=== PATIENT | male | born 1970 | race Caucasian/White ===

== ENCOUNTER 2019-04-30 13:55 | Emergency (ER) | payer BC ==
[~2019-04-30] VITALS: Ht 175.3 cm; Wt 99.8 kg
[2019-04-30] MEDS ORDERED: HYDROcodone/APAP 5/325MG 1 TAB TABLET PO ONE (14:30)
--- NOTE | 2019-04-30 14:30 | PHYS DOC ---
Past History Past Medical History: Hypertension Past Surgical History: No Surgical History Alcohol Use: None Adult General Chief Complaint Chief Complaint: BACK PAIN OR INJURY HPI HPI Patient is a 48-year-old male with no past medical history presents secondary to left flank pain that started this morning and has gradually gotten worse and currently rated 8/10. Pain is not worse with movement. No medications taken prior to arrival. No hematuria or dysuria, nausea vomiting, diarrhea or constipation, recent sickness. Review of Systems Review of Systems All other ROS is negative unless otherwise stated in HPI Current Medications Current Medications Current Medications Medications (Trade) Dose Ordered Sig/Bj Start Time Stop Time Status Last Admin Dose Admin Acetaminophen/ Hydrocodone Bitart (Lortab 5/325) 1 tab 1X ONCE 04/30/19 14:30 04/30/19 14:31 Allergies Allergies Allergies Coded Allergies Type Severity Reaction Last Updated Verified No Known Drug Allergies 04/30/19 No Physical Exam Physical Exam See above Constitutional: Well developed, well nourished, uncomfortable, non-toxic appearance. [] HENT: Normocephalic, atraumatic, bilateral external ears normal, oropharynx moist, no oral exudates, nose normal. [] Eyes: PERRLA, EOMI, conjunctiva normal, no discharge. [] Neck: Normal range of motion, no tenderness, supple, no stridor. [] Cardiovascular:Heart rate regular rhythm, no murmur [] Lungs & Thorax: Bilateral breath sounds clear to auscultation [] Abdomen: Bowel sounds normal, soft, no tenderness, no masses, no pulsatile masses. [] Skin: Warm, dry, no erythema, no rash. [] Back: No tenderness, no CVA tenderness. [] Extremities: No tenderness, no cyanosis, no clubbing, ROM intact, no edema. [] Neurologic: Alert and oriented X 3, normal motor function, normal sensory function, no focal deficits noted. [] Psychologic: Affect normal, judgement normal, mood normal. [] Current Patient Data Vital Signs Vital Signs Date Time Temp Pulse Resp B/P (MAP) Pulse Ox O2 Delivery O2 Flow Rate FiO2 04/30/19 13:55 98.1 93 22 154/114 (127) 95 Room Air Lab Results Laboratory Tests Test 04/30/19 14:50 White Blood Count 11.6 x10^3/uL Red Blood Count 5.52 x10^6/uL Hemoglobin 16.7 g/dL Hematocrit 50.6 % Mean Corpuscular Volume 92 fL Mean Corpuscular Hemoglobin 30 pg Mean Corpuscular Hemoglobin Concent 33 g/dL Red Cell Distribution Width 13.0 % Platelet Count 242 x10^3/uL Neutrophils (%) (Auto) 81 % Lymphocytes (%) (Auto) 14 % Monocytes (%) (Auto) 4 % Eosinophils (%) (Auto) 2 % Basophils (%) (Auto) 1 % Neutrophils # (Auto) 9.4 x10^3uL Lymphocytes # (Auto) 1.6 x10^3/uL Monocytes # (Auto) 0.4 x10^3/uL Eosinophils # (Auto) 0.2 x10^3/uL Basophils # (Auto) 0.1 x10^3/uL Urine Collection Type Unknown Urine Color Yellow Urine Clarity Clear Urine pH 5.0 Urine Specific [place] >=1.030 Urine Protein 30 mg/dl Urine Glucose (UA) Neg mg/dL Urine Ketones (Stick) Neg mg/dL Urine Blood Neg Urine Nitrite Neg Urine Bilirubin Neg Urine Urobilinogen Dipstick 0.2 mg/dL Urine Leukocyte Esterase Neg Urine RBC Occ /HPF Urine WBC Occ /HPF Urine Squamous Epithelial Cells Occ /LPF Urine Bacteria 0 /HPF Urine Hyaline Casts Occ /HPF Urine Granular Casts Occ /HPF Urine Mucus Mod /LPF Sodium Level 144 mmol/L Potassium Level 4.5 mmol/L Chloride Level 105 mmol/L Carbon Dioxide Level 29 mmol/L Anion Gap 10 Blood Urea Nitrogen 17 mg/dL Creatinine 1.0 mg/dL Estimated GFR (Cockcroft-Gault) 79.4 BUN/Creatinine Ratio 17 Glucose Level 131 mg/dL Calcium Level 8.8 mg/dL Total Bilirubin 0.6 mg/dL Aspartate Amino Transf (AST/SGOT) 99 U/L Alanine Aminotransferase (ALT/SGPT) 234 U/L Alkaline Phosphatase 75 U/L Total Protein 7.8 g/dL Albumin 4.1 g/dL Albumin/Globulin Ratio 1.1 Current Medications Medications (Trade) Dose Ordered Sig/Bj Route PRN Reason Start Time Stop Time Status Last Admin Dose Admin Acetaminophen/ Hydrocodone Bitart (Lortab 5/325) 1 tab 1X ONCE PO 04/30/19 14:30 04/30/19 14:31 DC 04/30/19 14:30 Sodium Chloride 1,000 ml @ 1,000 mls/hr 1X ONCE IV 04/30/19 15:00 04/30/19 15:59 04/30/19 15:00 Ketorolac Tromethamine (Toradol 30mg Vial) 30 mg 1X ONCE IVP 04/30/19 15:00 04/30/19 15:10 DC 04/30/19 15:00 EKG EKG [] Radiology/Procedures Radiology/Procedures EXAM: CT Abdomen and Pelvis without IV contrast INDICATION: Left flank pain and hematuria. TECHNIQUE: Multi-detector row CT images were acquired from the lung bases through the abdomen and pelvis without the use of IV contrast. Sagittal and coronal images were acquired from the transaxial data. All CT scans performed at this facility utilize dose optimization techniques as appropriate to the exam, including the following: Automated exposure control and adjustment of the mA and/or KV according to patient size (this includes techniques or standardized protocols for targeted exams where dose is indication/reason for exam). ORAL CONTRAST: None COMPARISON: None FINDINGS: The absence of IV contrast limits evaluation of soft tissue pathology. LOWER CHEST: Unremarkable LIVER: Unremarkable BILIARY SYSTEM: Gallbladder contains at least one layering calcified stone. No gallbladder wall thickening or pericholecystic soft tissue stranding.. Bile ducts are not dilated. PANCREAS: Unremarkable SPLEEN: Unremarkable ADRENALS: Unremarkable KIDNEYS & URETERS: 3 mm distal left ureteral stone (axial image 143 of 173 on series 2) is associated with upstream mild left hydronephrosis and perinephric soft tissue stranding. No fluid collection. The right kidney is unremarkable. BLADDER: Unremarkable REPRODUCTIVE ORGANS: Unremarkable GASTROINTESTINAL: The stomach, small bowel, and colon are unremarkable. The appendix is normal. MESENTERY/PERITONEUM/RETROPERITONEUM: Unremarkable VASCULAR: Unremarkable LYMPH NODES: No adenopathy OSSEOUS & SOFT TISSUES: Unremarkable IMPRESSION: Mild obstructive uropathy from a distal left ureteral 3 mm stone. Electronically signed by: Jane Rogers MD (04/30/2019 3:25 PM) [facility][] Course & Med Decision Making Course & Med Decision Making Pertinent Labs and Imaging studies reviewed. (See chart for details) Patient seen for left flank pain. His examination is unremarkable although he does appear uncomfortable. We'll start with urinalysis and basic labs Raymond for pain. Differential diagnosis includes UTI, pyelonephritis, ureteral stone, left flank muscular skeletal pain. Patient has a 3 mm left ureteral stone. He has mild leukocytosis and occasional white blood cells in his urine. We'll start him on antibiotics to prevent any secondary infection. He will be given Flomax prescription to help facilitate stone passage and also hydrocodone and ibuprofen. Patient is instructed to follow-up with his primary care physician in one week if his symptoms have not improved. He also has elevation of his liver enzymes of unknown significance and has been informed of this result and instructed to follow-up with his primary care physician. Dragon Disclaimer Dragon Disclaimer This electronic medical record was generated, in whole or in part, using a voice recognition dictation system. Departure Departure: Impression: Primary Impression: Left flank pain Additional Impressions: Left ureteral stone Elevated liver enzymes Disposition: 01 HOME, SELF-CARE Condition: STABLE Referrals: ZAC GARCIA MD (PCP) Follow up in 5-7 days if symptoms not improving. Patient Instructions: Kidney Stones Additional Instructions: Push fluids. Return for fever >101 or worsening symptoms. Scripts Sulfamethoxazole/Trimethoprim (BACTRIM DS TABLET) 1 Each Tablet 1 TAB PO BID for Ureteral Stone for 10 Days, #20 TAB 0 Refills Prov: ELIZABETH MACIEL DO 04/30/19 Tamsulosin Hcl (FLOMAX) 0.4 Mg Cap.er.24h 1 CAP PO DAILY for Ureteral stone, #14 CAP 11 Refills Prov: ELIZABETH MACIEL DO 04/30/19 Ibuprofen (IBUPROFEN) 800 Mg Tablet 1 TAB PO TID for Pain, #30 TAB Prov: ELIZABETH MACIEL DO 04/30/19 Hydrocodone Bit/Acetaminophen (HYDROCODONE-APAP 5-325 ) 1 Each Tablet 1 TAB PO PRN Q6HRS PRN for PAIN for 5 Days, #20 TAB 0 Refills Caution: this medication can make you drowsy. Do not drive or operate heavy machinery when using this medication. Prov: ELIZABETH MACIEL DO 04/30/19 Problem Qualifiers ELIZABETH MACIEL DO Apr 30, 2019 14:30
[2019-04-30] MEDS ORDERED: IV NORMAL SALINE 1,000ML 1,000 ML IV ONE (15:00)
[2019-04-30] MEDS ORDERED: KETOROLAC 30 MG/ML VIAL. IVP ONE (15:00)
[2019-04-30 15:09] LABS: BASO # 0.1 x10^3/uL (0.0-0.2); BASO % 1 % (0-3); EOS # 0.2 x10^3/uL (0.0-0.7); EOS % 2 % (0-3); HEMATOCRIT 50.6 % (39.0-53.0); HEMOGLOBIN 16.7 g/dL (13.0-17.5); LYMPH # 1.6 x10^3/uL (1.0-4.8); LYMPH % 14 % (24-48); MEAN CORPUSCULAR HEMOGLOBIN 30 pg (25-35); MEAN CORPUSCULAR HGB CONC 33 g/dL (31-37); MEAN CORPUSCULAR VOLUME 92 fL (79-100); MONO # 0.4 x10^3/uL (0.0-1.1); MONO % 4 % (0-9); NEUT # 9.4 x10^3uL (1.8-7.7); NEUT % 81 % (31-73); PLATELET COUNT 242 x10^3/uL (140-400); RED BLOOD COUNT 5.52 x10^6/uL (4.30-5.70); WHITE BLOOD COUNT 11.6 x10^3/uL (4.0-11.0)
[2019-04-30 15:17] LABS: CLARITY,URINE CLEAR; COLOR,URINE YELLOW; GLUCOSE,URINE NEG (NEG)
[2019-04-30 15:18] LABS: BACTERIA,URINE 0 /HPF (0-FEW); BILIRUBIN,URINE NEG (NEG); NITRITE,URINE NEG (NEG); RBC,URINE OCC /HPF (0-2); SQUAMOUS EPITHELIAL CELL,UR OCC /LPF; UROBILINOGEN,URINE 0.2 mg/dL (0.2 mg/dL); WBC,URINE OCC /HPF (0-4)
[2019-04-30 15:19] LABS: GRANULAR CASTS,URINE OCC /HPF; HYALINE CASTS, URINE OCC /HPF
[2019-04-30 15:26] LABS: CALCIUM 8.8 mg/dL (8.5-10.1); GFR 79.4; POTASSIUM 4.5 mmol/L (3.5-5.1)
--- NOTE | 2019-04-30 15:28 | RAD ---
EXAM: CT Abdomen and Pelvis without IV contrast INDICATION: Left flank pain and hematuria. TECHNIQUE: Multi-detector row CT images were acquired from the lung bases through the abdomen and pelvis without the use of IV contrast. Sagittal and coronal images were acquired from the transaxial data. All CT scans performed at this facility utilize dose optimization techniques as appropriate to the exam, including the following: Automated exposure control and adjustment of the mA and/or KV according to patient size (this includes techniques or standardized protocols for targeted exams where dose is indication/reason for exam). ORAL CONTRAST: None COMPARISON: None FINDINGS: The absence of IV contrast limits evaluation of soft tissue pathology. LOWER CHEST: Unremarkable LIVER: Unremarkable BILIARY SYSTEM: Gallbladder contains at least one layering calcified stone. No gallbladder wall thickening or pericholecystic soft tissue stranding.. Bile ducts are not dilated. PANCREAS: Unremarkable SPLEEN: Unremarkable ADRENALS: Unremarkable KIDNEYS & URETERS: 3 mm distal left ureteral stone (axial image 143 of 173 on series 2) is associated with upstream mild left hydronephrosis and perinephric soft tissue stranding. No fluid collection. The right kidney is unremarkable. BLADDER: Unremarkable REPRODUCTIVE ORGANS: Unremarkable GASTROINTESTINAL: The stomach, small bowel, and colon are unremarkable. The appendix is normal. MESENTERY/PERITONEUM/RETROPERITONEUM: Unremarkable VASCULAR: Unremarkable LYMPH NODES: No adenopathy OSSEOUS & SOFT TISSUES: Unremarkable IMPRESSION: Mild obstructive uropathy from a distal left ureteral 3 mm stone. Electronically signed by: Jane Rogers MD (04/30/2019 3:25 PM) [facility]
[2019-04-30 15:29] LABS: ALBUMIN 4.1 g/dL (3.4-5.0); ALBUMIN/GLOBULIN RATIO 1.1 (1.0-1.7); TOTAL BILIRUBIN 0.6 mg/dL (0.2-1.0); TOTAL PROTEIN 7.8 g/dL (6.4-8.2)
[2019-04-30 15:30] VITALS: BP 146/86
[2019-04-30] MEDS ORDERED: SULF1TAB24 PO (15:45)
[2019-04-30] MEDS ORDERED: IBUP800T19 PO (15:45)
[2019-04-30] MEDS ORDERED: TAMS0.4C97 PO (15:45)
[2019-04-30] MEDS ORDERED: HYDR-2155 PO (15:45)
[2019-04-30] MEDS ORDERED: HYDROmorphone PF 1 MG/ML DISP.SYRIN IV ONE (16:00)
[2019-04-30] MEDS ORDERED: TAMSULOSIN 0.4 MG CAP.ER.24H. PO ONE (16:00)
== END 2019-04-30 16:00 | disposition home or self-care (01) ==
LOC: ER 13:55
DX: N20.1 Calculus of ureter (principal); R74.8 Abnormal levels of other serum enzymes; I10 Essential (primary) hypertension
CPT/HCPCS: 36415; 74176; 80053; 81001; 85025; 96374; 96375; 99284; J1170; J1885; J7030

== ENCOUNTER 2020-02-06 11:54 | Inpatient (IN) | payer BC ==
[~2020-02-06] VITALS: Ht 175.3 cm; Wt 99.8 kg
[~2020-02-06 11:54] MED LIST: HYDR-2155 PO; IBUP800T19 PO; SULF1TAB24 PO; TAMS0.4C97 PO
--- NOTE | 2020-02-06 11:57 | PHYS DOC ---
Past History Past Medical History: Hypertension Past Surgical History: No Surgical History Alcohol Use: None General Adult EDM: Chief Complaint: SOA, COVID HPI: HPI: Patient is a 49-year-old male who was diagnosed with Covid last Thursday presents with chief complaint of shortness of breath and cough. Patient has been sick for approximately 1 week. Patient has had a fever, myalgias, headache, cough and shortness of breath especially with exertion. Patient's had nausea vomiting x1 and several episodes of diarrhea. Patient denies abdominal pain. Review of Systems: Review of Systems: Constitutional: Complains of fever Eyes: Denies change in visual acuity HENT: Complains of congestion and loss of smell Respiratory: Complains of cough and shortness of breath Cardiovascular: Denies chest pain or edema GI: Denies abdominal pain, patient has had some nausea and vomiting x1 and diarrhea : Denies dysuria Musculoskeletal: Complains of myalgias Integument: Denies rash Neurologic: Complains of headache but no focal weakness or sensory changes Endocrine: Denies polyuria or polydipsia Lymphatic: Denies swollen glands Psychiatric: Denies depression or anxiety Allergies: Allergies: Allergies Coded Allergies Type Severity Reaction Last Updated Verified No Known Drug Allergies 04/30/19 No Physical Exam: PE: Constitutional: Well developed, well nourished, no acute distress, non-toxic appearance. [] HENT: Normocephalic, atraumatic, bilateral external ears normal, no trismus nose normal. [] Eyes: PERRLA, EOMI, conjunctiva normal, no discharge. [] Neck: Normal range of motion, no tenderness, no meningeal signs Cardiovascular: Tachycardia, peripheral pulses are intact, cap refill is less than 2 seconds Lungs & Thorax: Slightly diminished breath sounds bilaterally Abdomen: , soft, no tenderness, no masses, no pulsatile masses. [] Skin: Warm, dry, no erythema, no rash. [] Back: No tenderness, no CVA tenderness. [] Extremities: No tenderness, no cyanosis, no clubbing, ROM intact, no edema. [] Neurologic: Alert and oriented X 3, normal motor function, normal sensory function, no focal deficits noted. [] Psychologic: Affect normal, judgement normal, mood normal. [] Current Patient Data: Labs: Laboratory Tests Test 02/06/20 12:35 02/06/20 13:29 02/06/20 13:40 White Blood Count 3.8 x10^3/uL Red Blood Count 5.09 x10^6/uL Hemoglobin 15.4 g/dL Hematocrit 45.4 % Mean Corpuscular Volume 89 fL Mean Corpuscular Hemoglobin 30 pg Mean Corpuscular Hemoglobin Concent 34 g/dL Red Cell Distribution Width 13.1 % Platelet Count 243 x10^3/uL Neutrophils (%) (Auto) 56 % Lymphocytes (%) (Auto) 34 % Monocytes (%) (Auto) 9 % Eosinophils (%) (Auto) 0 % Basophils (%) (Auto) 2 % Neutrophils # (Auto) 2.1 x10^3uL Lymphocytes # (Auto) 1.3 x10^3/uL Monocytes # (Auto) 0.3 x10^3/uL Eosinophils # (Auto) 0.0 x10^3/uL Basophils # (Auto) 0.1 x10^3/uL Sodium Level 136 mmol/L Potassium Level 3.5 mmol/L Chloride Level 102 mmol/L Carbon Dioxide Level 25 mmol/L Anion Gap 9 Blood Urea Nitrogen 15 mg/dL Creatinine 0.9 mg/dL Estimated GFR (Cockcroft-Gault) 89.3 BUN/Creatinine Ratio 17 Glucose Level 98 mg/dL Lactic Acid Level 0.7 mmol/L Calcium Level 8.7 mg/dL Total Bilirubin 0.3 mg/dL Aspartate Amino Transf (AST/SGOT) 49 U/L Alanine Aminotransferase (ALT/SGPT) 79 U/L Alkaline Phosphatase 65 U/L Lactate Dehydrogenase 321 U/L Creatine Kinase 215 U/L Troponin I Quantitative < 0.017 ng/mL C-Reactive Protein 50.1 mg/L Total Protein 7.4 g/dL Albumin 3.3 g/dL Albumin/Globulin Ratio 0.8 Lipase 202 U/L Urine Collection Type Unknown Urine Color Francesca Urine Clarity Clear Urine pH 6.0 Urine Specific [place] 1.025 Urine Protein 100 mg/dl Urine Glucose (UA) Neg mg/dL Urine Ketones (Stick) Trace mg/dL Urine Blood Neg Urine Nitrite Neg Urine Bilirubin Neg Urine Urobilinogen Dipstick 0.2 mg/dL Urine Leukocyte Esterase Neg Urine RBC 0 /HPF Urine WBC 0 /HPF Urine Squamous Epithelial Cells Occ /LPF Urine Bacteria 0 /HPF D-Dimer (Kerry) 0.66 mg/L Current Medications Medications (Trade) Dose Ordered Sig/Bj Route PRN Reason Start Time Stop Time Status Last Admin Dose Admin Sodium Chloride (Normal Saline Flush) 10 ml QSHIFT PRN IV AFTER MEDS AND BLOOD DRAWS 02/06/20 12:30 Sodium Chloride 1,000 ml @ 1,000 mls/hr 1X ONCE IV 02/06/20 12:30 02/06/20 13:29 DC 02/06/20 12:44 Dexamethasone Sodium Phosphate (Decadron) 4 mg 1X ONCE IVP 02/06/20 13:15 02/06/20 13:16 DC 02/06/20 13:32 Ceftriaxone Sodium 1 gm/ Sodium Chloride 50 ml @ 100 mls/hr 1X ONCE IV 02/06/20 13:15 02/06/20 13:44 DC 02/06/20 13:30 Azithromycin 500 mg/Sodium Chloride 250 ml @ 250 mls/hr 1X ONCE IV 02/06/20 13:15 02/06/20 14:14 DC 02/06/20 13:45 Sodium Chloride 50 ml @ As Directed STK-MED ONCE .ROUTE 02/06/20 13:14 02/06/20 13:14 DC Ceftriaxone Sodium (Rocephin) 1 gm STK-MED ONCE .ROUTE 02/06/20 13:14 02/06/20 13:14 DC Sodium Chloride 250 ml @ As Directed STK-MED ONCE .ROUTE 02/06/20 13:14 02/06/20 13:15 DC Azithromycin (Zithromax) 500 mg STK-MED ONCE IV 02/06/20 13:14 02/06/20 13:15 DC Vital Signs: Vital Signs Date Time Temp Pulse Resp B/P (MAP) Pulse Ox O2 Delivery O2 Flow Rate FiO2 02/06/20 15:39 91 24 143/92 (109) 97 Nasal Cannula 2.0 02/06/20 12:00 99.2 EKG: EKG: [] EKG interpreted by me sinus tach with a rate of 101 left axis deviation, left anterior hemiblock, nonspecific ST changes Radiology/Procedures: Radiology/Procedures: [][address] [address] IMAGING REPORT Signed PATIENT: MARGIE LOVELL ACCOUNT: [id number] : 1970 LOCATION: 1 [facility] AGE: 49 SEX: M EXAM STATUS: ADM IN ORD. PHYSICIAN: ROBERTO LINDO MD REASON: COUGH, PNA, COVID, +D DIMER PROCEDURE: CT ANGIOGRAPHY CHEST Examination: CT ANGIOGRAPHY CHEST History: Reason: COUGH, PNA, COVID, +D DIMER / Spl. Instructions: / History: Comparison/Correlation: Portable chest x-ray performed earlier on the same day Findings: Axial images of the chest were obtained following IV contrast into pulmonary arteriography protocol. Maximum intensity projection images provided. Sagittal and coronal reformatted images provided. Pulmonary arterial vasculature is normal with no PE identified. Extensive consolidations involving the lower lobes bilaterally seen. Patchy nodular infiltrates involving the upper to mid lung regions are also present. No enlarged thoracic lymph nodes. Visualized aorta is unremarkable. There is no pleural or pericardial effusion. Fatty infiltration of the liver is present. Small calculus is present within the gallbladder. Bony structures are unremarkable. Impression: No PE. Patchy infiltrates with consolidation at the lower lobes especially seen. Follow-up to resolution recommended. PQRS Compliance Statement: One or more of the following individualized dose reduction techniques were utilized for this examination: 1. Automated exposure control 2. Adjustment of the mA and/or kV according to patient size 3. Use of iterative reconstruction technique Electronically signed by: Wilbert Nguyễn MD (02/06/2020 3:53 PM) [facility] [place] DICTATED AND SIGNED BY: WILBERT NGUYỄN MD DATE: 02/06/20 1553 CC: ROBERTO LINDO MD; ZAC GARCIA MD; ZAC ODONNELL MD ~ Heart Score: Risk Factors: Risk Factors: DM, Current or recent (<one month) smoker, HTN, HLP, family history of CAD, obesity. Risk Scores: Score 0 - 3: 2.5% MACE over next 6 weeks - Discharge Home Score 4 - 6: 20.3% MACE over next 6 weeks - Admit for Clinical Observation Score 7 - 10: 72.7% MACE over next 6 weeks - Early Invasive Strategies Course & Med Decision Making: Course & Med Decision Making Pertinent Labs and Imaging studies reviewed. (See chart for details) [] 49-year-old male with COVID-19 presents with worsening shortness of breath. Patient satting 92 to 93 % on room air on arrival. Patient has a right midlung infiltrate on x-ray. Patient has elevated D-dimer therefore he underwent a CT angiogram which shows significant pneumonia. Patient has an oxygen requirement need be admitted. Dr. Odonnell will admit. Patient will get Decadron and a ntibiotics. Patient clinically improved on submental oxygen. Dragon Disclaimer: Dragon Disclaimer: This electronic medical record was generated, in whole or in part, using a voice recognition dictation system. Departure Departure: Impression: Primary Impression: Pneumonia due to COVID-19 virus Additional Impressions: Acute respiratory failure with hypoxia Dyspnea Disposition: ADMITTED INPT THIS HOSP Admitting Physician: Zac Odonnell Condition: STABLE Referrals: ZAC GARCIA MD (PCP) ROBERTO LINDO MD Feb 06, 2020 11:57
[2020-02-06] MEDS ORDERED: IV NORMAL SALINE 1,000ML 1,000 ML IV ONE (12:30)
[2020-02-06] MEDS ORDERED: 0.9 % SODIUM CHLORIDE 10 ML DISP.SYRIN. IV PRN (12:30)
--- NOTE | 2020-02-06 12:55 | EKG ---
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
--- NOTE | 2020-02-06 13:00 | RAD ---
PORTABLE CHEST 1V INDICATION: COUGH, COVID / Spl. Instructions: / History: . COMPARISON STUDY: None. FINDINGS: Lungs: Normal lung volume. Ill-defined right mid lung opacities. The tracheobronchial tree and hilar structures are normal. Pleura: No pleural effusion or pneumothorax. Heart and Mediastinum: The cardiomediastinal silhouette is normal. The great vessels of the thorax are normal. Bones and Soft Tissues: The bones and soft tissues are within normal limits. IMPRESSION: Ill-defined right mid lung opacities, which could represent an infectious/inflammatory process. Electronically signed by: Chriss Bowers MD (02/06/2020 12:57 PM) [id number]
[2020-02-06 13:12] LABS: BASO # 0.1 x10^3/uL (0.0-0.2); BASO % 2 % (0-3); EOS % 0 % (0-3); HEMATOCRIT 45.4 % (39.0-53.0); HEMOGLOBIN 15.4 g/dL (13.0-17.5); LYMPH # 1.3 x10^3/uL (1.0-4.8); LYMPH % 34 % (24-48); MEAN CORPUSCULAR HEMOGLOBIN 30 pg (25-35); MEAN CORPUSCULAR HGB CONC 34 g/dL (31-37); MEAN CORPUSCULAR VOLUME 89 fL (79-100); MONO # 0.3 x10^3/uL (0.0-1.1); MONO % 9 % (0-9); NEUT # 2.1 x10^3uL (1.8-7.7); NEUT % 56 % (31-73); PLATELET COUNT 243 x10^3/uL (140-400); RED BLOOD COUNT 5.09 x10^6/uL (4.30-5.70); RED CELL DISTRIBUTION WIDTH 13.1 % (11.5-14.5); WHITE BLOOD COUNT 3.8 x10^3/uL (4.0-11.0)
[2020-02-06] MEDS ORDERED: IV NORMAL SALINE 50ML 50 ML ONE (13:14)
[2020-02-06] MEDS ORDERED: AZITHROMYCIN 500 MG VIAL. IV ONE (13:14)
[2020-02-06] MEDS ORDERED: IV NORMAL SALINE 250ML 250 ML ONE (13:14)
[2020-02-06] MEDS ORDERED: cefTRIAXone SODIUM 1 GM VIAL ONE (13:14)
[2020-02-06] MEDS ORDERED: AZITHROMYCIN 500 MG in IV NORMAL SALINE 250ML 250 ML IV ONE (13:15)
[2020-02-06] MEDS ORDERED: DEXAMETHASONE SOD PHOS 4 MG/ML VIAL. IVP ONE (13:15)
[2020-02-06 13:23] LABS: CALCIUM 8.7 mg/dL (8.5-10.1); CREATININE 0.9 mg/dL (0.7-1.3); GFR 89.3; POTASSIUM 3.5 mmol/L (3.5-5.1)
[2020-02-06 13:29] LABS: ALBUMIN 3.3 g/dL (3.4-5.0); ALBUMIN/GLOBULIN RATIO 0.8 (1.0-1.7); C REACTIVE PROTEIN 50.1 mg/L (0-3.3); TOTAL BILIRUBIN 0.3 mg/dL (0.2-1.0); TOTAL PROTEIN 7.4 g/dL (6.4-8.2)
[2020-02-06] MEDS ORDERED: ONDANSETRON PF 4 MG/2 ML VIAL. IVP PRN (14:15)
[2020-02-06 14:29] LABS: BACTERIA,URINE 0 /HPF (0-FEW); BILIRUBIN,URINE NEG (NEG); CLARITY,URINE CLEAR; COLOR,URINE AMBER; GLUCOSE,URINE NEG (NEG); NITRITE,URINE NEG (NEG); RBC,URINE 0 /HPF (0-2); SQUAMOUS EPITHELIAL CELL,UR OCC /LPF; UROBILINOGEN,URINE 0.2 mg/dL (0.2 mg/dL); WBC,URINE 0 /HPF (0-4)
--- NOTE | 2020-02-06 15:17 | HP ---
ADMIT DATE: 02/06/2020 ATTENDING PHYSICIAN: Dr. Odonnell. CHIEF COMPLAINT: Shortness of breath. HISTORY OF PRESENT ILLNESS: The patient is a 49-year-old gentleman. He was diagnosed 4 days ago with COVID-19 infection. He has been sick for about a week. He has had low-grade fevers, myalgia, headache, nonproductive cough, some shortness of breath with exertion, one episode of vomiting, several episodes of diarrhea. He does not feel well. In the ED, a chest x-ray demonstrated a small infiltrate in the right middle lobe. Because the symptoms are not getting better, he is admitted then with early right middle lobe pneumonia related to coronavirus. PAST MEDICAL HISTORY: Significant for essential hypertension. ALLERGIES: He has no known drug allergies. CURRENT MEDICATIONS: Reviewed. He was taking ibuprofen, Bactrim and [id number] meds. SOCIAL HISTORY: He is a nonsmoker, nondrinker. FAMILY HISTORY: His dad of complications of lung cancer at age 61. Mom is alive, she has diabetes and hypertension. He is employed at the [employer]. He is not in the . 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 He lives at home with his , son is aged 16, they have been healthy. REVIEW OF SYSTEMS: Significant for the problems that brought him here. The recent infection, he has had COVID positive test this past Thursday. All other systems reviewed and determined to be negative. PHYSICAL EXAMINATION: GENERAL: When I saw him, this is a pleasant young gentleman. INITIAL VITAL SIGNS: Showed a blood pressure of 118/88, pulse is 110 and regular, temperature 99.2 degrees Fahrenheit, oxygen saturation 94% on room air. HEENT: Head is without trauma. Pupils are reactive. Sclerae nonicteric. Oropharynx clear. NECK: Supple. No bruits. LUNGS: Minimal rhonchi at the bases. CARDIOVASCULAR: Showed regular heart tones. No gallops. ABDOMEN: Soft, scaphoid, nontender. No organomegaly. Bowel sounds are hypoactive. EXTREMITIES: Showed no cyanosis or edema. NEUROLOGIC: Focally intact. Speech is fluent. SKIN: Warm and dry. IMAGING: Chest x-ray showed an ill-defined right mid lung opacity. LABORATORY DATA: His hemoglobin is 15.4 g/dL with a white count of 3800. Electrolytes: Sodium 136, potassium 3.5 mEq. Transaminases normal. Cardiac enzymes are negative. Lactic acid 0.7. ASSESSMENT: 1. A 49-year-old gentleman with COVID-19 pneumonia, early pneumonia in the right middle lobe. 2. Myalgias. 3. Essential hypertension. 4. Some gastrointestinal symptoms related to infection. PLAN: 1. Admit to the inpatient unit. 2. Diet as tolerated. 3. Empiric steroids, Decadron 6 mg daily. 4. Pepcid. 5. Empiric Lovenox 30 mg subcutaneous daily to prevent clots. 6. Zinc sulfate. 7. Supplemental oxygen as needed. ZAC ODONNELL MD DR: EFREN/jarad JOB#: [id number] / [id number] ZAC Arrieta
[2020-02-06] MEDS ORDERED: IOHEXOL 350 MG/ML 100 ML VIAL. IV ONE (15:30)
--- NOTE | 2020-02-06 15:56 | RAD ---
Examination: CT ANGIOGRAPHY CHEST History: Reason: COUGH, PNA, COVID, +D DIMER / Spl. Instructions: / History: Comparison/Correlation: Portable chest x-ray performed earlier on the same day Findings: Axial images of the chest were obtained following IV contrast into pulmonary arteriography protocol. Maximum intensity projection images provided. Sagittal and coronal reformatted images provided. Pulmonary arterial vasculature is normal with no PE identified. Extensive consolidations involving the lower lobes bilaterally seen. Patchy nodular infiltrates involving the upper to mid lung regions are also present. No enlarged thoracic lymph nodes. Visualized aorta is unremarkable. There is no pleural or pericardial effusion. Fatty infiltration of the liver is present. Small calculus is present within the gallbladder. Bony structures are unremarkable. Impression: No PE. Patchy infiltrates with consolidation at the lower lobes especially seen. Follow-up to resolution recommended. PQRS Compliance Statement: One or more of the following individualized dose reduction techniques were utilized for this examination: 1. Automated exposure control 2. Adjustment of the mA and/or kV according to patient size 3. Use of iterative reconstruction technique Electronically signed by: Wilbert Rico MD (02/06/2020 3:53 PM) [facility]
[2020-02-06] MEDS ORDERED: ENOXAPARIN 30 MG/0.3 ML SYRINGE. SQ SCH (16:45)
[2020-02-06 16:47] VITALS: BP 151/84
[2020-02-06] MEDS ORDERED: LISI40TA PO (17:29)
[2020-02-06] MEDS ORDERED: METO-239 PO (17:29)
[2020-02-06] MEDS ORDERED: ENOXAPARIN 40 MG/0.4 ML SYRINGE. SQ SCH (17:45)
--- NOTE | 2020-02-06 17:55 | NUR ---
ADMISSION NOTE- Pt arrives by EMS from ED at approx 1635. He is wearing O2 @ 2L/NC upon arrival. He has established IV site in (L) AC. He is A&O, able to participate in admission process. He is ambulatory ad cayetano, et oriented to room et call light system. COVID education provided regarding his isolation at this time.
[2020-02-06 19:30] VITALS: BP 144/90
[2020-02-06] MEDS: ZINC SULFATE 220 MG CAPSULE. PO SCH (19:35)
[2020-02-06] MEDS ORDERED: FAMOTIDINE 20 MG TABLET PO SCH (21:00)
[2020-02-06 23:30] VITALS: BP 139/89
[2020-02-07 05:51] VITALS: BP 132/81
[2020-02-07] MEDS ORDERED: DEXAMETHASONE 4 MG TABLET PO SCH (08:00)
[2020-02-07] MEDS: ZINC SULFATE 220 MG CAPSULE. PO SCH (08:59)
--- NOTE | 2020-02-07 11:48 | NUR ---
DISCHARGE NOTE-Patient IV discontinued, discharge information presented. All personal possessions sent with patient at time of dismissal. Ambulates to front door, to personal vehicle to be driven home by .
--- NOTE | 2020-02-07 12:59 | DS ---
DATE OF DISCHARGE: 02/07/2020 ATTENDING PHYSICIAN: Dr. Odonnell. FINAL DISCHARGE DIAGNOSES: 1. A 49-year-old gentleman with COVID-19 pneumonia, small infiltrate in the right middle lobe. 2. Myalgias, improved. 3. Essential hypertension. 4. Some mild gastrointestinal symptoms related infection. HISTORY AND PHYSICAL: The patient is a 49-year-old gentleman with known exposure to COVID-19. He has been in quarantine at home. He was diagnosed 4 days ago with COVID-19 infection. He has had a nonproductive cough, dry in nature, myalgias, low-grade fevers. He is admitted for further treatment and evaluation. Chest x-ray showed early infiltrate in the right middle lobe. PHYSICAL EXAMINATION: Please see the dictated note. PERTINENT LABORATORY AND X-RAY STUDIES: The patient had a CT angiogram to rule out blood clots. There was no evidence of PE. He had patchy infiltrates with consolidation of the lower lobes. Hemoglobin is maintained at 15.4 g/dL, white count of 3800. Electrolytes, BUN and creatinine all within normal range. Cardiac enzymes unremarkable. Transaminases slightly elevated at 49 and 79, AST and ALT respectively. COURSE IN THE HOSPITAL: The patient was admitted. He was started on empiric Decadron, Lovenox, Pepcid, and ____. Tussionex was ordered p.r.n. for cough. He did well. Diet was advanced and he was feeling better. By the second hospital day, he was afebrile. Blood pressure was 132/80, pulse 88 and regular. His oxygen saturation 95% on room air. At this time, he wanted to go home. I felt this is reasonable. He will self-quarantine when he gets home. I wrote a script for 7 more days of Decadron 8 mg p.o. daily, Tussionex 5 mL q. 12 hours p.r.n. cough and continuation of his regularly scheduled home meds including lisinopril, metoprolol, Flomax, and Bactrim, the dose is unchanged. He will follow up with his regular physician as scheduled. The patient was then discharged from our hospital in stable condition with explicit instructions and followup care. TOTAL DISCHARGE TIME SPENT: 38 minutes. ZAC ODONNELL MD DR: EFREN/jarad JOB#: [id number] / [id number] ZAC Arrieta
== END 2020-02-07 11:45 | disposition home or self-care (01) | DRG 177 ==
LOC: ER 11:54 → 1 SOUTH 14:13
PROVIDERS: ADMIT Hospitalist; ATTEND Hospitalist
DX: U07.1 COVID-19 (principal); J12.89 Other viral pneumonia; J96.01 Acute respiratory failure with hypoxia; I10 Essential (primary) hypertension; Z80.1 Family history of malignant neoplasm of trachea, bronchus and lung; Z82.49 Family history of ischemic heart disease and other diseases of the circulatory system; Z83.3 Family history of diabetes mellitus
CPT/HCPCS: 36415; 71045; 71275; 80053; 81001; 82550; 83605; 83615; 83690; 84484; 85025; 85379; 86140; 87040; 93005; 96361; 96365; 96368; 96375; J0456; J0696; J1100; J1650; J7050; J8540; Q9967; 99285-25; J7030

== ENCOUNTER → 2020-04-06 | Outpatient (CLI) | payer BC ==
[~2020-04-06] MED LIST changes: +LISI40TA PO; +METO-239 PO
== END ==
LOC: LAB 07:10
PROVIDERS: ATTEND Nurse Anesthetist, Certified Registered
DX: Z01.812 Encounter for preprocedural laboratory examination (principal); Z20.828 Contact with and (suspected) exposure to other viral communicable diseases
CPT/HCPCS: U0003

== ENCOUNTER → 2020-04-10 | Day surgery (SDC) | payer BC ==
[~2020-04-10] MED LIST changes: +IPRATRPIUM/ALBUTEROL 0.5/2.5MG 3 ML NEBU. NEB PRN; +IV RINGERS SOLUTION,LACTATED 1,000 ML IV SCH; +LIDOCAINE 2% PF 5 ML VIAL. ONE; +MIDAZOLAM HCL PF 2 MG/2 ML VIAL. IV ONE; +ONDANSETRON PF 4 MG/2 ML VIAL. IV PRN; +PROPOFOL 10,000 MCG/ML (20ML) VIAL IV ONE
[2020-04-10 10:00] VITALS: BP 137/83
== END | disposition home or self-care (01) ==
LOC: SURG 08:09
PROVIDERS: ATTEND Emergency Medicine
DX: Z12.11 Encounter for screening for malignant neoplasm of colon (principal); K62.1 Rectal polyp; I10 Essential (primary) hypertension; Z79.899 Other long term (current) drug therapy; Z87.442 Personal history of urinary calculi; Z72.89 Other problems related to lifestyle; Z87.01 Personal history of pneumonia (recurrent); Z80.1 Family history of malignant neoplasm of trachea, bronchus and lung; Z83.3 Family history of diabetes mellitus; Z82.49 Family history of ischemic heart disease and other diseases of the circulatory system
CPT/HCPCS: 45380; 88305; J2001; J2704; J7120

== ENCOUNTER 2021-05-24 20:48 | Emergency (ER) | payer BC ==
[~2021-05-24] VITALS: Ht 175.3 cm; Wt 107.7 kg
[~2021-05-24 20:48] MED LIST changes: -IPRATRPIUM/ALBUTEROL 0.5/2.5MG 3 ML NEBU. NEB PRN; -IV RINGERS SOLUTION,LACTATED 1,000 ML IV SCH; -LIDOCAINE 2% PF 5 ML VIAL. ONE; -LISI40TA PO; +LISI40TA6 PO; -MIDAZOLAM HCL PF 2 MG/2 ML VIAL. IV ONE; -ONDANSETRON PF 4 MG/2 ML VIAL. IV PRN; -PROPOFOL 10,000 MCG/ML (20ML) VIAL IV ONE
--- NOTE | 2021-05-24 23:44 | PHYS DOC ---
Past History Past Medical History: Hypertension Past Surgical History: No Surgical History Alcohol Use: Rarely General Adult EDM: Chief Complaint: HYPERTENSION HPI: HPI: ...My BP is up....".. " My Lt face is weak.. cant close my Lt eye very well...or open it well.. . the whole left side.. it started yesterday..." Patient is a 50 year old male who presents with above hx and complaints left facial weakness. 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 Patient denies any recent trauma. No history immunosuppression. No history of travel. No specific ill contacts. Patient has not gotten flu vaccination or Covid vaccination. Patient does have a history of hypertension, GERD, pneumonia, and elevated cholesterol. Patient did have Covid infection on 02/02/2020. Currently Dr. Garcia is adding medications to control his blood pressure in a stepwise process. 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 Review of Systems: Review of Systems: Constitutional: Denies fever or chills Eyes: Denies change in visual acuity HENT: Complains of left-sided facial weakness x 2 days. Respiratory: Denies cough or shortness of breath Cardiovascular: Denies chest pain or edema GI: Denies abdominal pain, nausea, vomiting, bloody stools or diarrhea : Denies dysuria Musculoskeletal: Denies back pain or joint pain Integument: Denies rash Neurologic: Denies headache, focal weakness or sensory changes Endocrine: Denies polyuria or polydipsia Lymphatic: Denies swollen glands Psychiatric: Denies depression or anxiety Family History: Family History: Father of lung cancer age 61, mother has history of diabetes and hypertension Current Medications: Current Meds: See nursing for home meds Allergies: Allergies: Allergies Coded Allergies Type Severity Reaction Last Updated Verified No Known Drug Allergies 04/10/20 No Physical Exam: PE: Constitutional: Mild/moderate acute distress, non-toxic appearance. [] HENT: Normocephalic, atraumatic, bilateral external ears normal, oropharynx moist, no oral exudates, nose normal. Obvious left-sided facial weakness. Eyes: PERRLA, EOMI, conjunctiva normal, no discharge. [] Neck: Normal range of motion, no tenderness, supple, no stridor. No bruits. Cardiovascular:Heart rate regular rhythm, no murmur []. PMI to left Lungs & Thorax: Bilateral breath sounds equal apex with few scattered wheezes auscultation [] Abdomen: Bowel sounds normal, soft, no tenderness, no masses, no pulsatile masses. [] Skin: Warm, dry, no erythema, no rash. [] Back: No tenderness, no CVA tenderness. [] Extremities: No tenderness, no cyanosis, no clubbing, ROM intact, no edema. No cording appreciated Neurologic: Alert and oriented X 3, moves all extremities on request, has distal sensory, no focal deficits noted. [] DTRs +2 patella and brachial. Ambulatory without problems. No drift. [id number]. Air conduction more than bone conduction. Does have increased hearing on the left side. Psychologic: Affect anxious, judgement normal, mood normal. [] Current Patient Data: Vital Signs: Vital Signs Date Time Temp Pulse Resp B/P (MAP) Pulse Ox O2 Delivery O2 Flow Rate FiO2 05/24/21 23:23 98.2 71 19 137/94 (108) 95 Room Air EKG: EKG: My interpretation EKG shows a sinus rhythm at 72 bpm. Does have mild leftward axis. Some nonspecific changes anterior septal. No acute morphology. Time of EKG is 2343 hrs. [] Radiology/Procedures: Radiology/Procedures: [[address] [address] IMAGING REPORT Signed PATIENT: MARGIE LOVELL ACCOUNT: [id number] : 1970 LOCATION: ER AGE: 50 SEX: M EXAM STATUS: REG ER ORD. PHYSICIAN: ALICE GARCÍA MD REASON: tachy, htn PROCEDURE: PORTABLE CHEST 1V EXAM: XR CHEST 1V 05/24/2021 11:47 PM CLINICAL INDICATION: Tachycardia, hypertension COMPARISON: Chest radiograph 02/06/2020 TECHNIQUE: PA upright view of the chest FINDINGS: The heart is normal in size. Lungs are mildly hypoexpanded. There is no consolidation, pleural effusion, or pneumothorax. No acute osseous abnormality. IMPRESSION: No acute cardiopulmonary abnormality. Electronically signed by: Mildred Woodard MD (05/25/2021 2:12 AM) [facility] DICTATED AND SIGNED BY: MILDRED WOODARD MD DATE: 05/25/21210 CC: ZAC GARCIA MD; ALICE GARCÍA MD ~[facility]0 0 ][address] [address] IMAGING REPORT Signed PATIENT: MARGIE LOVELL ACCOUNT: [id number] : 1970 LOCATION: ER AGE: 50 SEX: M EXAM STATUS: REG ER ORD. PHYSICIAN: ALICE GARCÍA MD REASON: Facial weakness PROCEDURE: CT HEAD WO CONTRAST EXAM: CT head without contrast INDICATION: Facial weakness COMPARISON: None TECHNIQUE: Axial CT imaging through the head without intravenous contrast. Sagittal and coronal reformats were obtained. One or more of the following individualized dose reduction techniques were utilized for this examination: 1. Automated exposure control 2. Adjustment of the mA and/or kV according to patient size 3. Use of iterative reconstruction technique. FINDINGS: The ventricles and sulci are normal. Constantino-white matter differentiation is maintained. There is no intracranial hemorrhage, acute infarct, or mass lesion. Basal cisterns are clear. The skull and scalp are intact. Paranasal sinuses and mastoid air cells are clear. Globes and orbits are intact. IMPRESSION: No acute intracranial abnormality. Electronically signed by: Mildred Woodard MD (05/25/2021 12:46 AM) [facility] DICTATED AND SIGNED BY: MILDRED WOODARD MD DATE: 05/25/21 0045 CC: ZAC GARCIA MD; ALICE GARCÍA MD ~MTH0 0 Heart Score: C/O Chest Pain: N/A HEART Score for Chest Pain: HEART Score for Chest Pain Response (Comments) Value History Moderately Suspicious 1 ECG Nonspecific Repolarizatio 1 Age >45 - < 65 1 Risk Factors 1 or 2 Risk Factors 1 Troponin < Normal Limit 0 Total 4 Risk Factors: Risk Factors: DM, Current or recent (<one month) smoker, HTN, HLP, family history of CAD, obesity. Risk Scores: Score 0 - 3: 2.5% MACE over next 6 weeks - Discharge Home Score 4 - 6: 20.3% MACE over next 6 weeks - Admit for Clinical Observation Score 7 - 10: 72.7% MACE over next 6 weeks - Early Invasive Strategies Course & Med Decision Making: Course & Med Decision Making Pertinent Labs and Imaging studies reviewed. (See chart for details) Patient use gentle massage. Discussed option of treatment. Patient elects to do a course of famciclovir 500x 3 times daily and prednisone 50 mg day for 5 days. Patient take a daily aspirin. Patient follow-up with primary care. Patient review hypertensive medicine primary care. Return for any concerns. Patient wanted tape Lt. eyes shut at night. Return if any concerns. Impression- 1. Kolb's Palsy 2. Viral syndrome 3. Elevation AST 116, Alt 285 [] Dragon Disclaimer: Dragon Disclaimer: This electronic medical record was generated, in whole or in part, using a voice recognition dictation system. Departure Departure: Referrals: ZAC GARCIA MD (PCP) Scripts Famciclovir (FAMCICLOVIR) 500 Mg Tablet 500 MG PO TID for [place] for 7 Days, #21 TAB Prov: ALICE GARCÍA MD 05/25/21 Prednisone (PREDNISONE) 50 Mg Tablet 50 MG PO DAILY for bells for 5 Days, #5 TAB Prov: ALICE GARCÍA MD 05/25/21 Dragon Disclaimer This chart was dictated in whole or in part using Voice Recognition software in a busy, high-work load, and often noisy Emergency Department environment. It may contain unintended and wholly unrecognized errors or omissions. Dragon Disclaimer This chart was dictated in whole or in part using Voice Recognition software in a busy, high-work load, and often noisy Emergency Department environment. It may contain unintended and wholly unrecognized errors or omissions. ALICE GARCÍA MD May 24, 2021 23:44
[2021-05-25] MEDS ORDERED: IV RINGERS SOLUTION,LACTATED 1,000 ML IV SCH
[2021-05-25 00:03] LABS: BASO # 0.1 x10^3/uL (0.0-0.2); BASO % 1 % (0-3); EOS # 0.4 x10^3/uL (0.0-0.7); EOS % 3 % (0-3); HEMATOCRIT 48.5 % (39.0-53.0); HEMOGLOBIN 16.5 g/dL (13.0-17.5); LYMPH # 4.2 x10^3/uL (1.0-4.8); LYMPH % 41 % (24-48); MEAN CORPUSCULAR HEMOGLOBIN 31 pg (25-35); MEAN CORPUSCULAR HGB CONC 34 g/dL (31-37); MEAN CORPUSCULAR VOLUME 91 fL (79-100); MONO # 0.9 x10^3/uL (0.0-1.1); MONO % 9 % (0-9); NEUT # 4.7 x10^3uL (1.8-7.7); NEUT % 46 % (31-73); PLATELET COUNT 243 x10^3/uL (140-400); RED BLOOD COUNT 5.32 x10^6/uL (4.30-5.70); RED CELL DISTRIBUTION WIDTH 13.3 % (11.5-14.5); WHITE BLOOD COUNT 10.2 x10^3/uL (4.0-11.0)
[2021-05-25 00:17] LABS: CALCIUM 8.9 mg/dL (8.5-10.1); CREATININE 0.8 mg/dL (0.7-1.3); GFR 101.9; POTASSIUM 3.8 mmol/L (3.5-5.1)
[2021-05-25 00:30] LABS: ALBUMIN 3.8 g/dL (3.4-5.0); DIRECT BILIRUBIN 0.1 mg/dL (0.0-0.2); MAGNESIUM 2.4 mg/dL (1.8-2.4); TOTAL BILIRUBIN 0.5 mg/dL (0.2-1.0); TOTAL PROTEIN 7.7 g/dL (6.4-8.2)
--- NOTE | 2021-05-25 00:49 | RAD ---
EXAM: CT head without contrast INDICATION: Facial weakness COMPARISON: None TECHNIQUE: Axial CT imaging through the head without intravenous contrast. Sagittal and coronal refor mats were obtained. One or more of the following individualized dose reduction techniques were utilized for this examinat ion: 1. Automated exposure control 2. Adjustment of the mA and/or kV according to patient size 3. Use of iterative reconstruction technique. FINDINGS: The ventricles and sulci are normal. Constantino-white matter differentiation is maintained. There is no in tracranial hemorrhage, acute infarct, or mass lesion. Basal cisterns are clear. The skull and scalp are intact. Paranasal sinuses and mastoid air cells are clear. Globes and orbits are intact. IMPRESSION: No acute intracranial abnormality. Electronically signed by: Mildred Woodard MD (05/25/2021 12:46 AM) [facility]
[2021-05-25 01:54] LABS: BARBITURATES NEG (NEG); BENZODIAZEPINES NEG (NEG); CANNABINOIDS NEG (NEG); COCAINE NEG (NEG); METHADONE NEG (NEG); OPIATES NEG (NEG); PHENCYCLIDINE NEG (NEG)
[2021-05-25 01:58] LABS: BACTERIA,URINE 0 /HPF (0-FEW); CLARITY,URINE CLEAR; COLOR,URINE YELLOW; GLUCOSE,URINE NEG (NEG); NITRITE,URINE NEG (NEG); RBC,URINE 0 /HPF (0-2); SQUAMOUS EPITHELIAL CELL,UR OCC /LPF; UROBILINOGEN,URINE 0.2 mg/dL (0.2 mg/dL); WBC,URINE OCC /HPF (0-4)
[2021-05-25 02:02] LABS: AMPHETAMINE/METHAMPHETAMINE NEG (NEG)
--- NOTE | 2021-05-25 02:14 | RAD ---
EXAM: XR CHEST 1V 05/24/2021 11:47 PM CLINICAL INDICATION: Tachycardia, hypertension COMPARISON: Chest radiograph 02/06/2020 TECHNIQUE: PA upright view of the chest FINDINGS: The heart is normal in size. Lungs are mildly hypoexpanded. There is no consolidation, ple ural effusion, or pneumothorax. No acute osseous abnormality. IMPRESSION: No acute cardiopulmonary abnormality. Electronically signed by: Mildred Woodard MD (05/25/2021 2:12 AM) [facility]
[2021-05-25 02:49] VITALS: BP 99/39
[2021-05-25] MEDS ORDERED: ASPIRIN 325 MG TABLET PO ONE (03:00)
[2021-05-25] MEDS ORDERED: predniSONE 10 MG TABLET. PO ONE (03:00)
[2021-05-25] MEDS ORDERED: ACYCLOVIR 200 MG CAPSULE PO ONE (03:00)
[2021-05-25] MEDS ORDERED: PRED50TA PO (03:07)
[2021-05-25] MEDS ORDERED: FAMC500T3 PO (03:07)
--- NOTE | 2021-05-25 06:51 | EKG ---
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
[2021-05-25 15:31] LABS: CHOLESTEROL/HDL RATIO 3.9; THYROID STIM HORMONE (TSH) 1.917 uIU/mL (0.358-3.740)
== END 2021-05-25 03:15 | disposition home or self-care (01) ==
LOC: ER 20:48
DX: G51.0 Bell's palsy (principal); B34.9 Viral infection, unspecified; R79.89 Other specified abnormal findings of blood chemistry; I10 Essential (primary) hypertension; K21.9 Gastro-esophageal reflux disease without esophagitis; E78.00 Pure hypercholesterolemia, unspecified
CPT/HCPCS: 36415; 70450; 71045; 80048; 80061; 80076; 80307; 81001; 82550; 83690; 83735; 83880; 84443; 84484; 85025; 85379; 85610; 85730; 93005; 96360; 96361; 99285; J7120; J7512